=== PATIENT | female | born 1985 | race African-American/Black ===

== ENCOUNTER → 2016-12-18 | Outpatient (CLI) | payer OTHER ==
[~2016-12-18] MED LIST: ASPIRIN81 M2 PO; ATORVASTATIN CA20 MG PO; BACLOFEN20 M1 PO; BENADRYL25 M1 PO; BENADRYL25 M3 PO; BENTYL20 MG PO; COZAAR25 MG PO; CYMBALTA30 M1 PO; DILTIA XT120 MG PO; DILTIAZEM 24HR120 MG PO; FERROUS SULFAT325 MG PO; IRON325 MG PO; LASIX20 MG PO; LATUDA20 MG PO; LOPRESSOR PO; LOSARTAN POTASS25 MG PO; MYCOSTATIN POWD15 GM EXT; OMEPRAZOLE40 M1; OMEPRAZOLE40 M1 PO; PAIN RELIEF650 MG PO; PHENERGAN PO; PHENERGAN25 M1 PO; PHENERGAN25 MG PO; PHYTONADIONE PO; PROVERA PO; PROVERA10 MG PO; VITAMIN D32000 UNI1 PO; VITAMIN D32000 UNIT PO; VITAMIN D350000 UNIT; VYVANSE20 MG; XARELTO15 MG PO; XARELTO20 MG PO
== END | disposition home or self-care (01) ==
LOC: CBAR 14:51
DX: Z01.818 Encounter for other preprocedural examination (principal); E66.01 Morbid (severe) obesity due to excess calories
CPT/HCPCS: G0463

== ENCOUNTER 2017-01-08 09:42 | Emergency (ER) | payer OTHER ==
--- NOTE | ~2017-01-08 | CT4 ---
[facility] A Service [facility] RADIOLOGY TEXT RESULTS PATIENT: YUNIER CARVALHO LOCATION: [facility] : 85 UNIT #: [id number] AGE: [address]: Dallin Amador MD SEX: F ORDER DR: [id number] [facility] [address] [place], [place] [address] [id number] E MR#: [id number] Acc #: [id number] NAME: YUNIER CARVALHO : 1985 SEX: F STUDY DATE/TIME: 01/08/2017 10:26 UNIT: [facility] ROOM: STUDY DESCRIPTION: CT Abd and Pelv Wo Cont Attending Physician: Dallin Amador M.D. Ordering Physician: Dallin Amador M.D. Primary Care Physician: Pawel Clifton M.D. MEDICAL IMAGING REPORT This report is preliminary unless electronic signature is present EXAM CT of the abdomen and pelvis without contrast media HISTORY Left-sided abdominal pain for 5 days, episodes of diarrhea and foul-smelling urine. TECHNIQUE Transaxial imaging of the abdomen and pelvis was performed without contrast media. The study is severely limited by the patient's morbid obesity and beam-hardening artifact. This CT examination was performed with one or more of the following radiation dose reduction techniques: automatic exposure control, adjustment of mA and/or kV according to patient size, and iterative reconstruction. FINDINGS There is detector artifact identified on the study. This renders the examination uninterpretable. No gross abnormalities are seen. CONCLUSION Technically unsatisfactory study secondary to beam-hardening artifact due to the patient's morbid obesity. No gross abnormalities are identified. Subtle abnormalities certainly could be easily missed based on this study. Dictated by... Sree Curry M.D. THIS IS AN ELECTRONICALLY VERIFIED REPORT Sree Curry M.D. at 01/11/2017 2:43 PM MARY ALICE/ez TD: 01/08/2017 11:00 [facility] A Service [facility] RADIOLOGY TEXT RESULTS PATIENT: YUNIER CARVALHO [id number] [birth year] UNIT #: [id number] AGE: [address]: Dallin Amador MD SEX: F ORDER DR: JOB #: [id number] MEDICAL IMAGING REPORT Page 1 of 1 COPY
[~2017-01-08 09:42] MED LIST changes: -BACLOFEN20 M1 PO; -BENADRYL25 M1 PO; -BENADRYL25 M3 PO; -COZAAR25 MG PO; -CYMBALTA30 M1 PO; -DILTIA XT120 MG PO; -DILTIAZEM 24HR120 MG PO; -FERROUS SULFAT325 MG PO; -IRON325 MG PO; -LATUDA20 MG PO; -LOSARTAN POTASS25 MG PO; -OMEPRAZOLE40 M1 PO; -PHENERGAN PO; -PHENERGAN25 MG PO; -PROVERA PO; -PROVERA10 MG PO; -VITAMIN D32000 UNI1 PO; -VITAMIN D32000 UNIT PO
[2017-01-08 11:23] LABS: BASOPHIL% 0.6 % (0-2.5); EOSINOPHIL# 0.1 X10e3 (0-0.7); EOSINOPHIL% 2.1 % (0.0-7.0); HEMOGLOBIN 11.8 gm/dL (12.0-16.0); LYMPHOCYTE# 2.1 X10e3 (1.0-3.5); LYMPHOCYTE% 31.6 % (17.0-45.0); MEAN CELL VOLUME 90.6 FL (83-96); MEAN CORPUSCULAR HEMOGLOBIN 28.8 PG (28-34); MEAN CORPUSCULAR HGB CONC 31.8 g/dL (30-36); MEAN PLATELET VOLUME 9.9 FL (6.5-11.5); MONOCYTE# 0.4 X10e3 (0-1.0); MONOCYTE% 6.2 % (3.0-12.0); NEUTROPHIL% 59.5 % (40-75); PLATELET COUNT 228 X10e3 (140-420); RED BLOOD COUNT 4.09 X10e (3.90-5.30); RED CELL DISTRIBUTION WIDTH 13.3 % (11.0-15.5); WHITE BLOOD COUNT 6.7 X10e3 (4.0-10.5)
[2017-01-08 11:40] LABS: CULTURE INDICATED? YES; URINE APPEARANCE CLEAR; URINE BACTERIA AUWI 2+ (NEGATIVE); URINE BILIRUBIN NEG (NEG); URINE BLOOD NEG (NEG); URINE COLOR YELLOW; URINE GLUCOSE NEG (NEG); URINE KETONE NEG (NEG); URINE LEUKOCYTE ESTERASE TRACE (NEG); URINE NITRATE NEG (NEG); URINE PROTEIN NEG (NEG); URINE SPECIFIC GRAVITY 1.023 (1.003-1.035); URINE SQUAMOUS EPITHELIAL CELL FEW /[HPF]; URINE UROBILINOGEN 0.2 MG/DL (NEG)
[2017-01-08 11:46] LABS: DIFF IND NO
[2017-01-08 11:47] LABS: URINE SOURCE CLEAN CATCH
[2017-01-08 12:22] LABS: ALBUMIN SERUM 3.3 g/dL (3.5-5.0); BILIRUBIN, DIRECT 0.1 mg/dL (0.0-0.2); BILIRUBIN,INDIRECT 0.4 mg/dL (0.0-0.9); BILIRUBIN,TOTAL 0.5 mg/dL (0.2-2.0); BUN/CREATININE RATIO 15.38; CALCIUM SERUM 8.9 mg/dL (8.4-10.2); CREATININE SERUM 1.3 mg/dL (0.6-1.4); GLOM FILT RATE Estimated 63.3 mL/min (>60); POTASSIUM 4.3 mmol/L (3.5-5.1); PROTEIN TOTAL SERUM 6.6 g/dL (6.0-8.3)
[2017-05-27] MEDS ORDERED: LATUDA20 MG PO (15:44)
[2017-05-27] MEDS ORDERED: BACLOFEN20 M1 PO (15:44)
[2017-05-27] MEDS ORDERED: XARELTO20 MG PO (15:44)
[2017-05-27] MEDS ORDERED: BENADRYL25 M3 PO (15:45)
[2017-05-27] MEDS ORDERED: IRON325 MG PO (15:45)
[2017-05-27] MEDS ORDERED: PHENERGAN25 MG PO (15:45)
[2017-05-27] MEDS ORDERED: VITAMIN D32000 UNI1 PO (15:45)
[2017-05-27] MEDS ORDERED: DILTIA XT120 MG PO (15:46)
[2017-05-27] MEDS ORDERED: LOPRESSOR PO (15:46)
[2017-05-27] MEDS ORDERED: CYMBALTA30 M1 PO (15:46)
[2017-05-27] MEDS ORDERED: LOSARTAN POTASS25 MG PO (15:47)
[2017-05-27] MEDS ORDERED: PROVERA10 MG PO (15:54)
[2017-05-31] MEDS ORDERED: LATUDA20 MG PO (13:09)
[2017-05-31] MEDS ORDERED: DILTIAZEM 24HR120 MG PO (13:10)
[2017-05-31] MEDS ORDERED: BENADRYL25 M1 PO (13:10)
[2017-05-31] MEDS ORDERED: OMEPRAZOLE40 M1 PO (13:11)
[2017-05-31] MEDS ORDERED: VITAMIN D32000 UNIT PO (13:11)
[2017-05-31] MEDS ORDERED: CYMBALTA30 M1 PO (13:12)
[2017-05-31] MEDS ORDERED: PROVERA PO (13:12)
[2017-05-31] MEDS ORDERED: FERROUS SULFAT325 MG PO (13:13)
[2017-05-31] MEDS ORDERED: XARELTO20 MG PO (13:13)
[2017-05-31] MEDS ORDERED: COZAAR25 MG PO (13:13)
[2017-05-31] MEDS ORDERED: LOPRESSOR PO (13:14)
[2017-05-31] MEDS ORDERED: PHENERGAN PO (13:14)
== END 2017-01-08 13:05 | disposition home or self-care (01) ==
LOC: CED 09:42
PROVIDERS: Emergency Medicine
DX: R10.12 Left upper quadrant pain (principal); I50.9 Heart failure, unspecified; Z79.899 Other long term (current) drug therapy; Z88.0 Allergy status to penicillin; Z88.5 Allergy status to narcotic agent; Z91.010 Allergy to peanuts
CPT/HCPCS: 74176; 80048; 80076; 81003; 82150; 83690; 84703; 85025; 87086; 96372; 99284; J0500

== ENCOUNTER → 2017-02-09 | Outpatient (CLI) | payer OTHER ==
[~2017-02-09] MED LIST changes: +BACLOFEN20 M1 PO; +BENADRYL25 M1 PO; +BENADRYL25 M3 PO; +COZAAR25 MG PO; +CYMBALTA30 M1 PO; +DILTIA XT120 MG PO; +DILTIAZEM 24HR120 MG PO; +FERROUS SULFAT325 MG PO; +IRON325 MG PO; +LATUDA20 MG PO; +LOSARTAN POTASS25 MG PO; +OMEPRAZOLE40 M1 PO; +PHENERGAN PO; +PHENERGAN25 MG PO; +PROVERA PO; +PROVERA10 MG PO; +VITAMIN D32000 UNI1 PO; +VITAMIN D32000 UNIT PO
== END | disposition home or self-care (01) ==
LOC: CBAR 15:47
DX: Z01.818 Encounter for other preprocedural examination (principal); E66.01 Morbid (severe) obesity due to excess calories
CPT/HCPCS: G0463

== ENCOUNTER → 2017-05-31 | Day surgery (SDC) | payer OTHER ==
--- NOTE | ~2017-05-31 | OR ---
Unit #: [id number] #: [id number] Patient: YUNIER CARVALHO [id number] [address] [place], [place] [address] [id number] MR#: [id number] NAME: YUNIER CARVALHO. ROOM: Date of Procedure: 05/31/2017 Admission Date: 05/31/2017 Surgeon: Valdemar Alexander M.D. : 1985 Attending Physician: Valdemar Alexander M.D. Primary Care Physician: Generic Doctor Not In System OPERATIVE REPORT PRIMARY CARE PHYSICIAN Clement Davison M.D. PREOPERATIVE DIAGNOSES The patient presented with a history of dyspepsia as well as increasing constipation, hematochezia, and left lower quadrant abdominal pain. PROCEDURES PERFORMED Upper gastrointestinal endoscopy with biopsy as well as colonoscopy with polypectomy. POSTOPERATIVE DIAGNOSES For upper endoscopy: 1. The patient had distal grade 1 erosive esophagitis. 2. There was moderate prepyloric antral erosive gastritis. 3. Rest of the examination up to third part of duodenum was normal. A biopsy was obtained from the antrum for CLOtest. For colonoscopy: The patient had two sessile polyps, both were present in the sigmoid colon and were removed using snare cautery polypectomy, the other one using a cold biopsy forceps. The large of the two polyps was about 7 mm in size. Rest of the examination up to cecum and terminal ileum was normal. The quality of the prep was excellent. SEDATION USED MAC in main OR. RECOMMENDATIONS The patient will continue on once a day omeprazole and be followed up in the office in 3 to 4 months' time. DESCRIPTION OF PROCEDURE Following detailed explanation of potential risks and complications of an upper endoscopy and a colonoscopy, namely perforation, bleeding, and complication related to sedation, the patient was brought to GI lab and laid in the left lateral decubitus position. Lubricated tip of the Olympus video upper endoscope was passed through bite block into the proximal esophagus under direct vision. The entire esophageal mucosa was examined. The patient was noted to have grade 1 distal erosive esophagitis. The scope was then advanced into the gastric cavity and the latter was insufflated. Mucosa of the fundus, body, and antrum was examined and moderate prepyloric antral erythema erosions noted indicating antral gastritis. Pylorus was intubated with visualization of the normal Unit #: [id number] #: [id number] Patient: YUNIER CARVALHO duodenal bulb and second and third part of the duodenum. Upon withdrawal and retroflexion; incisura, cardia, and greater curve was examined and biopsy was obtained from the antrum for CLOtest. The scope was then withdrawn in the distal esophagus. The entire esophageal mucosa was examined all the way up to pharynx. No additional findings were noted. The examination table was then turned by 180 degrees and the patient positioned for a colonoscopy. A digital rectal examination was performed, which was normal. Lubricated tip of the Olympus video colonoscope was inserted through the anus and advanced under direct vision. The scope was advanced past rectosigmoid into descending colon. No diverticula were seen in this area. The scope tip was then navigated all the way up to cecum with visualization of the ileocecal valve and the appendiceal orifice. Preparation was excellent with good visualization and photodocumentation was obtained. Last several inches of the terminal ileum were also visualized after intubation of the ileocecal valve and appeared normal. Successive segments of the colonic mucosa were examined upon withdrawal. The patient was noted to have two sessile polyps, both were present in the sigmoid colon. The small of these was removed using antegrade examination with a cold biopsy forceps and the larger one using a snare polypectomy during the withdrawal phase examination. No additional polyps were noted. The patient did not have any diverticulosis nor any hemorrhoids. The scope was then withdrawn and the patient returned to the recovery area. He tolerated the procedure without any postprocedure complications. Dictated by... Harpreet Woodruff/gwen TD: 05/31/2017 19:10 JOB #: [id number] CC: Clement Davison M.D. OPERATIVE REPORT Page 1 of 1 X Valdemar Alexander MD X PROCEDURE OPERATIVE NOTE
== END | disposition home or self-care (01) ==
LOC: COPS 11:17
DX: D12.5 Benign neoplasm of sigmoid colon (principal); K22.10 Ulcer of esophagus without bleeding; K29.70 Gastritis, unspecified, without bleeding; N18.3 Chronic kidney disease, stage 3 (moderate); Z88.0 Allergy status to penicillin; Z91.040 Latex allergy status
CPT/HCPCS: 84703; 87077; 88305